=== PATIENT | female | born 1935 | race Caucasian/White ===

== ENCOUNTER 2018-10-14 15:10 | Emergency (ER) | payer OTHER ==
--- NOTE | 2018-10-14 17:26 | RAD REPORT ---
EXAM DESCRIPTION: RAD - Wrist Right 3 View - 10/14/2018 4:31 pm CLINICAL HISTORY: Right wrist pain status post injury FINDINGS: Comminuted markedly displaced intra-articular fracture involves the distal radius. Avulsion fracture ulnar styloid process No dislocation
--- NOTE | 2018-10-14 17:28 | RAD REPORT ---
EXAM DESCRIPTION: RAD - Forearm Right - 10/14/2018 4:35 pm CLINICAL HISTORY: Right arm pain status post fall FINDINGS: Comminuted markedly displaced intra-articular fracture involves the distal radius. Avulsion fracture ulnar styloid process No dislocation
[2018-10-14] MEDS ORDERED: FENTANYL CITR 100 MCG/2 ML ONE (17:45)
[2018-10-14] MEDS ORDERED: DIAZEPAM 5 MG TABLET ONE (18:16)
--- NOTE | 2018-10-14 18:47 | ER ---
Nurse's Notes [facility] Name: Danelle Bradford Age: 83 yrs Sex: Female : 1935 Arrival Date: 10/14/2018 Time: 15:12 Bed 27 Private MD: Diagnosis: Fall on same level from slipping, tripping and stumbling;COMMINUTED FRACTURE OF DISTAL RIGHT RADIUS;Nondisplaced fracture of right ulna styloid process Presentation: 10/14 15:29 Presenting complaint: Patient states: i was out in the front and there was a stone tw2 behind my shoe and i stepped back and it tripped me and i fell and landed onto my RIGHT arm, about 2 hours ago, it looks a little deformed to me or maybe my ligaments are torn, i took a tylenol #3 about 2 hours, my RIGHT wrist hurts. Transition of care: patient was not received from another setting of care. Onset of symptoms was October 14, 2018. Risk Assessment: Do you want to hurt yourself or someone else? Patient reports no desire to harm self or others. Initial Sepsis Screen: Does the patient meet any 2 criteria? No. Patient's initial sepsis screen is negative. Does the patient have a suspected source of infection? No. Patient's initial sepsis screen is negative. Care prior to arrival: None. Ice pack applied to injury. 15:29 Method Of Arrival: Ambulatory tw2 15:29 Acuity: ROBYN 3 tw2 Triage Assessment: 15:31 General: Appears in no apparent distress. Behavior is calm, cooperative, appropriate tw2 for age. Pain: Complains of pain in right wrist. Musculoskeletal: Circulation, motion, and sensation intact. Swelling present in right wrist. Injury Description: from a fall, all on my RIGHT wrist. Historical: - Allergies: 15:33 No Known Allergies; tw2 - Home Meds: 15:33 levothyroxine 112 mcg tab 1 tab once daily [Active]; tw2 - PMHx: 15:33 Hypothyroidism; tw2 - Immunization history:: Adult Immunizations. - Social history:: Smoking status: . - Ebola Screening: : Patient denies travel to an Ebola-affected area in the 21 days before illness onset. Screenin:44 Abuse screen: Denies threats or abuse. Nutritional screening: No deficits noted. ae4 Tuberculosis screening: No symptoms or risk factors identified. Fall Risk Fall in past 12 months (25 points). No secondary diagnosis (0 pts). No IV (0 pts). Ambulatory Aid- None/Bed Rest/Nurse Assist (0 pts). Gait- Normal/Bed Rest/Wheelchair (0 pts) Mental Status- Oriented to own ability (0 pts). Assessment: 15:33 General: Appears in no apparent distress. comfortable, Behavior is calm, cooperative. ae4 Pain: Complains of pain in right wrist. Neuro: Level of Consciousness is awake, alert, obeys commands, Oriented to person, place, time, situation, Appropriate for age. Cardiovascular: Patient's skin is warm and dry. Respiratory: Airway is patent Respiratory effort is even, unlabored, Respiratory pattern is regular, symmetrical. GI: No signs and/or symptoms were reported involving the gastrointestinal system. : No signs and/or symptoms were reported regarding the genitourinary system. EENT: No signs and/or symptoms were reported regarding the EENT system. Derm: Skin is pink, warm \\T\\ dry. Musculoskeletal: Swelling present in right wrist. 17:47 Reassessment: Patient is reporting increased pain to right wrist and right fingers. ae4 Provider notified of pain level. patient states she took a "tylenol 3" at 1400 today. New orders received. 19:27 General: Appears in no apparent distress. comfortable, Behavior is calm, cooperative. ea Pain: Complains of pain in right hand Pain currently is 3 out of 10 on a pain scale. Neuro: Level of Consciousness is awake, alert, obeys commands, Oriented to person, place, time, situation. Cardiovascular: Patient's skin is warm and dry. Respiratory: Airway is patent Respiratory effort is even, unlabored, Respiratory pattern is regular, symmetrical. Derm: Skin is pink, warm \\T\\ dry. 20:27 Reassessment: Patient and/or family updated on plan of care and expected duration. Pain ea level reassessed. Patient is alert, oriented x 3, equal unlabored respirations, skin warm/dry/pink. Discharge instruction given to patient, verbalized the understanding of instruction. Vital Signs: 15:32 BP 143 / 69; Pulse 89; Resp 17; Temp 98.8(TE); Pulse Ox 95% on R/A; Weight 92.99 kg; tw2 Pain 3/10; 19:38 BP 138 / 62; Pulse 80; Resp 18; Pulse Ox 99% ; ea 20:15 BP 132 / 68; Pulse 88; Resp 18; Pulse Ox 99% ; ea 15:32 its fine now but i did take that tylenol #3 tw2 ED Course: 15:12 Patient arrived in ED. ss4 15:31 Triage completed. tw2 15:31 Arm band placed on. tw2 15:33 Anu Hernandez, RN is Primary Nurse. ca1 15:45 Girish Rojas, ANA is Primary Nurse. ae4 15:55 Nory Montesinos FNP-C is [facility]. snw 15:56 Bruce Lopez MD is Attending Physician. snw 16:31 Forearm Right XRAY In Process Unspecified. EDMS 16:31 Wrist Right 3 View XRAY In Process Unspecified. EDMS 16:42 Bed in low position. Call light in reach. Side rails up X 1. Pillow given. Ice pack to ae4 injury. 19:28 Patient did not have IV access during this emergency room visit. ea 20:20 Orthoglass splint: Sugar tong splint applied on right arm. Sling applied to right arm. ea 20:27 No provider procedures requiring assistance completed. ea Administered Medications: 17:30 Drug: fentaNYL (PF) 50 mcg Route: IM; Site: left deltoid; ae4 19:10 Follow up: Response: Pain is decreased ea 17:37 CANCELLED (IM no IV): fentaNYL (PF) 50 mcg IVP once ae4 18:02 Drug: Valium 5 mg Route: PO; ae4 19:09 Follow up: Response: Other; Patient appears more relaxed. ea Intake: Outcome: 18:47 Discharge ordered by . snw 20:28 Discharged to home ambulatory, with family. ea 20:28 Condition: improved 20:28 Discharge instructions given to patient, Instructed on discharge instructions, follow up and referral plans. medication usage, Demonstrated understanding of instructions, follow-up care, medications, Prescriptions given X 2. 20:29 Patient left the ED. ea Signatures: Dispatcher [employer] EDLA Nory Montesinos FNP-C FNP-Radha Bae RN RN tw2 Charity Coello RN RN ea Acob, Cheryl, RN RN ca1 Smith, Stephanie ss4 Girish Rojas, ANA RN ae4
--- NOTE | 2018-10-14 18:47 | EDPHYS ---
Physician Documentation [facility] Name: Danelle Bradford Age: 83 yrs Sex: Female : 1935 Arrival Date: 10/14/2018 Time: 15:12 Bed 27 Private MD: ED Physician Bruce Lopez HPI: 10/14 17:00 This 83 yrs old Female presents to ER via Ambulatory with complaints of Arm snw Injury. 17:00 The patient or guardian complains of decreased range of motion, injury, pain, swelling. snw The complaints affect the right wrist. Context: The problem was sustained at home, resulted from a fall, while walking. Onset: The symptoms/episode began/occurred suddenly, just prior to arrival. Associated signs and symptoms: The patient has no apparent associated signs or symptoms. Severity of symptoms: At their worst the symptoms were moderate. The patient has not experienced similar symptoms in the past. It is unknown whether or not the patient has recently seen a physician. Historical: - Allergies: 15:33 No Known Allergies; tw2 - Home Meds: 15:33 levothyroxine 112 mcg tab 1 tab once daily [Active]; tw2 - PMHx: 15:33 Hypothyroidism; tw2 - Immunization history:: Adult Immunizations. - Social history:: Smoking status: . - Ebola Screening: : Patient denies travel to an Ebola-affected area in the 21 days before illness onset. ROS: 17:00 Constitutional: Negative for fever, chills, and weight loss, Eyes: Negative for injury, snw pain, redness, and discharge, ENT: Negative for injury, pain, and discharge, Neck: Negative for injury, pain, and swelling, Cardiovascular: Negative for chest pain, palpitations, and edema, Respiratory: Negative for shortness of breath, cough, wheezing, and pleuritic chest pain, Abdomen/GI: Negative for abdominal pain, nausea, vomiting, diarrhea, and constipation, Back: Negative for injury and pain, : Negative for injury, bleeding, discharge, and swelling, Skin: Negative for injury, rash, and discoloration, Neuro: Negative for headache, weakness, numbness, tingling, and seizure. 17:00 MS/extremity: Positive for injury or acute deformity, decreased range of motion, deformity, pain, paresthesias, swelling, of the right wrist. Exam: 17:00 Constitutional: This is a well developed, well nourished patient who is awake, alert, snw and in no acute distress. Head/Face: Normocephalic, atraumatic. Eyes: Pupils equal round and reactive to light, extra-ocular motions intact. Lids and lashes normal. Conjunctiva and sclera are non-icteric and not injected. Cornea within normal limits. Periorbital areas with no swelling, redness, or edema. ENT: Nares patent. No nasal discharge, no septal abnormalities noted. Tympanic membranes are normal and external auditory canals are clear. Oropharynx with no redness, swelling, or masses, exudates, or evidence of obstruction, uvula midline. Mucous membranes moist. Neck: Trachea midline, no thyromegaly or masses palpated, and no cervical lymphadenopathy. Supple, full range of motion without nuchal rigidity, or vertebral point tenderness. No Meningismus. Chest/axilla: Normal chest wall appearance and motion. Nontender with no deformity. No lesions are appreciated. Cardiovascular: Regular rate and rhythm with a normal S1 and S2. No gallops, murmurs, or rubs. Normal PMI, no JVD. No pulse deficits. Respiratory: Lungs have equal breath sounds bilaterally, clear to auscultation and percussion. No rales, rhonchi or wheezes noted. No increased work of breathing, no retractions or nasal flaring. Abdomen/GI: Soft, non-tender, with normal bowel sounds. No distension or tympany. No guarding or rebound. No evidence of tenderness throughout. Back: No spinal tenderness. No costovertebral tenderness. Full range of motion. Skin: Warm, dry with normal turgor. Normal color with no rashes, no lesions, and no evidence of cellulitis. Neuro: Awake and alert, GCS 15, oriented to person, place, time, and situation. Cranial nerves II-XII grossly intact. Motor strength 5/5 in all extremities. Sensory grossly intact. Cerebellar exam normal. Normal gait. Psych: Awake, alert, with orientation to person, place and time. Behavior, mood, and affect are within normal limits. 17:00 Musculoskeletal/extremity: Extremities: grossly normal except: noted in the right wrist: decreased ROM, pain, swelling, ROM: limited active range of motion due to pain, limited passive range of motion due to pain, Circulation is intact in all extremities. the dorsal aspect of middle phalanx of right index finger, dorsal aspect of proximal phalanx of right index finger, dorsal aspect of middle phalanx of right middle finger and dorsal aspect of proximal phalanx of right middle finger Tingling of extremity. Vital Signs: 15:32 BP 143 / 69; Pulse 89; Resp 17; Temp 98.8(TE); Pulse Ox 95% on R/A; Weight 92.99 kg; tw2 Pain 3/10; 19:38 BP 138 / 62; Pulse 80; Resp 18; Pulse Ox 99% ; ea 20:15 BP 132 / 68; Pulse 88; Resp 18; Pulse Ox 99% ; ea 15:32 its fine now but i did take that tylenol #3 tw2 MDM: 16:08 Patient medically screened. snw 18:49 Data reviewed: vital signs, nurses notes. Data interpreted: Pulse oximetry: on room air snw is 95 %. Interpretation: acceptable. Counseling: I had a detailed discussion with the patient and/or guardian regarding: the historical points, exam findings, and any diagnostic results supporting the discharge/admit diagnosis, the presence of at least one elevated blood pressure reading (>120/80) during this emergency department visit, radiology results, the need for outpatient follow up, to return to the emergency department if symptoms worsen or persist or if there are any questions or concerns that arise at home. Response to treatment: the patient's symptoms have mildly improved after treatment. Special discussion: I have referred the patient to see his PCP for further evaluation of high blood pressure. Based on the history and exam findings, there is no indication for further emergent testing or inpatient evaluation. I discussed with the patient/guardian the need to see the orthopedic surgeon for further evaluation of the symptoms. I discussed with the patient/guardian the need to see the primary care provider for further evaluation of the symptoms. 19:21 Refusal of service: The patient/guardian displays adequate decision making capability snw and despite a detailed discussion of alternatives, benefits, risks, and consequences refuses: fingertrap traction. 10/14 15:56 Order name: Forearm Right XRAY; Complete Time: 17:31 snw 10/14 15:56 Order name: Wrist Right 3 View XRAY; Complete Time: 17:31 snw 10/14 16:17 Order name: Ice pack; Complete Time: 16:26 snw 10/14 18:43 Order name: Sugar Tong Forearm Splint; Complete Time: 20:29 snw 10/14 18:44 Order name: Sling; Complete Time: 20:29 snw Administered Medications: 17:30 Drug: fentaNYL (PF) 50 mcg Route: IM; Site: left deltoid; ae4 19:10 Follow up: Response: Pain is decreased ea 17:37 CANCELLED (IM no IV): fentaNYL (PF) 50 mcg IVP once ae4 18:02 Drug: Valium 5 mg Route: PO; ae4 19:09 Follow up: Response: Other; Patient appears more relaxed. ea Disposition: 10/15 07:02 Co-signature as Attending Physician, Bruce Lopez MD. rn Disposition: 10/14/18 18:47 Discharged to Home. Impression: Fall on same level from slipping, tripping and stumbling, COMMINUTED FRACTURE OF DISTAL RIGHT RADIUS, Nondisplaced fracture of right ulna styloid process. - Condition is Stable. - Discharge Instructions: Cast or Splint Care, Adult, Forearm Fracture, Head Injury, Adult, Fall Prevention in the Home, How to Use a Sling. - Prescriptions for Tylenol- Codeine #3 300-30 mg Oral Tablet - take 2 tablets by ORAL route every 6 hours As needed; 20 tablet. orphenadrine citrate 100 mg Oral Tablet Sustained Release - take 1 tablet by ORAL route 2 times per day As needed; 20 tablet. - Medication Reconciliation Form, Thank You Letter, Antibiotic Education, Prescription Opioid Use form. - Follow up: Emergency Department; When: As needed; Reason: Worsening of condition. Follow up: Private Physician; When: 2 - 3 days; Reason: Recheck today's complaints, Continuance of care, Re-evaluation by your physician. Signatures: Dispatcher [employer] EDMS Nory Montesinos, YARN TEXTURING MACHINE OPERATOR-C YARN TEXTURING MACHINE OPERATOR-Csnw Bruce Lopez MD MD rn Wise, Tara, RN RN tw2 Charity Coello RN RN ea Acob, Cheryl, RN RN ca1 Elliott, Andrea, RN RN ae4 Corrections: (The following items were deleted from the chart) 10/14 17:37 17:37 fentaNYL (PF) 50 mcg IVP once ordered. ae4 ae4 19:23 17:06 [facility] [place]. Order ordered. ever ea 20:29 18:47 10/14/2018 18:47 Discharged to Home. Impression: Fall on same level from ea slipping, tripping and stumbling; COMMINUTED FRACTURE OF DISTAL RIGHT RADIUS; Nondisplaced fracture of right ulna styloid process. Condition is Stable. Forms are Medication Reconciliation Form, Thank You Letter, Antibiotic Education, Prescription Opioid Use. Follow up: Emergency Department; When: As needed; Reason: Worsening of condition. Follow up: Private Physician; When: 2 - 3 days; Reason: Recheck today's complaints, Continuance of care, Re-evaluation by your physician. ever
== END 2018-10-14 20:29 | disposition home or self-care (01) ==
LOC: ER 15:10
DX: S52.501A Unspecified fracture of the lower end of right radius, initial encounter for closed fracture (principal); S52.614A Nondisplaced fracture of right ulna styloid process, initial encounter for closed fracture; E03.9 Hypothyroidism, unspecified; W01.0XXA Fall on same level from slipping, tripping and stumbling without subsequent striking against object, initial encounter; Y93.89 Activity, other specified; Y92.9 Unspecified place or not applicable
CPT/HCPCS: 73090; 73110; 96372; 99284; J3010